=== PATIENT | male | born 1985 | race Caucasian/White ===

== ENCOUNTER 2020-09-29 08:50 | Emergency (ER) | payer SELFPAY ==
[~2020-09-29] VITALS: Ht 180.3 cm; Wt 90.9 kg
[2020-09-29 08:53] VITALS: BP 140/90
[2020-09-29] MEDS: BUPIVACAINE MPF 0.5% 30 ML VIAL. SQ ONE (09:10)
[2020-09-29] MEDS ORDERED: AMOX500T PO (09:12)
--- NOTE | 2020-09-29 09:13 | PHYS DOC ---
Past History Past Medical History: No Pertinent History General Adult EDM: Chief Complaint: DENTAL PROBLEM HPI: HPI: Healthy 35-year-old male who presents for evaluation of dental pain. The patient reports a 1 to 2-day history of left upper incisor pain. No fever or ch ills, nausea or vomiting. Has not yet seen a dentist for his current pain. No recent oral surgery. Review of Systems: Review of Systems: Gen: No fever, chills. ENT: No nasal congestion, sore throat. Reports dental pain. CV: No CP, palpitations. Resp. No SOB, cough. GI: No abd pain, N/V. Neuro: No CHAUDHRY, dizziness, weakness. Skin: No acute rash or lesion. Remainder of systems reviewed and negative unless otherwise specified. Physical Exam: PE: Gen: NAD. Well nourished. Head: NC/AT. Eyes: No scleral icterus. No conjunctival injection. ENT: MMM. Posterior OP clear. Overall poor dentition. No visualized periapical abscess. No facial swelling or cellulitic changes. Neck: Supple. NT. No palpable anterior cervical adenopathy. CV: RRR. Peripheral pulses intact. Resp: CTAB. MSK: No peripheral cyanosis. Neuro: Awake and alert. Skin. Warm. Dry. Psych: Appropriate mood & affect. EKG: EKG: [] Radiology/Procedures: Radiology/Procedures: [] Heart Score: C/O Chest Pain: N/A Risk Factors: Risk Factors: DM, Current or recent (<one month) smoker, HTN, HLP, family history of CAD, obesity. Risk Scores: Score 0 - 3: 2.5% MACE over next 6 weeks - Discharge Home Score 4 - 6: 20.3% MACE over next 6 weeks - Admit for Clinical Observation Score 7 - 10: 72.7% MACE over next 6 weeks - Early Invasive Strategies Course & Med Decision Making: Course & Med Decision Making Pertinent Labs and Imaging studies reviewed. (See chart for details) In summary, 35-year-old male who presents for evaluation of dental pain, primarily of the left upper incisors. No visualized periapical abscess or external facial infection. No clinical suspicion for maxillofacial abscess. I offered a dental block. However, he was only able to tolerate about 0.5 cc of bupivacaine, prior to pulling away. To be discharged home with prescriptions for amoxicillin. Outpatient dental follow-up. Return precautions given. Rodriguez Disclaimer: Rodriguez Disclaimer: This electronic medical record was generated, in whole or in part, using a voice recognition dictation system. Departure Departure: Impression: Primary Impression: Pain, dental Disposition: 01 DC HOME SELF CARE/HOMELESS Condition: STABLE Referrals: PCP,NO (PCP) Patient Instructions: Dental Pain, [id number] Additional Instructions: Please follow up with a dentist for definitive management of your dental pain. Scripts Amoxicillin (AMOXICILLIN) 500 Mg Tablet 1 TAB PO BID for dental pain/caries, #14 TAB Prov: CYN CORTEZ DO 09/29/20 CYN CORTEZ DO Sep 29, 2020 09:13
== END 2020-09-29 09:20 | disposition home or self-care (01) ==
LOC: ER 08:50
DX: K08.89 Other specified disorders of teeth and supporting structures (principal)
CPT/HCPCS: 96372; 99283; J3490

== ENCOUNTER 2020-10-01 12:31 | Emergency (ER) | payer SELFPAY ==
[~2020-10-01] VITALS: Ht 180.3 cm; Wt 90.9 kg
[~2020-10-01 12:31] MED LIST: AMOX500T PO
--- NOTE | 2020-10-01 13:19 | PHYS DOC ---
Past History Past Medical History: No Pertinent History Additional Past Medical Histor: Non Hodgkins Past Surgical History: Other Additional Past Surgical Histo: lymph node removed Alcohol Use: None General Adult EDM: Chief Complaint: DENTAL PROBLEM HPI: HPI: Patient is a 35-year-old male who presents with left-sided facial swelling and facial pain. Patient states that he was seen here in the emergency room 2 days ago and placed on an antibiotic. Patient was unable to get antibiotic filled until yesterday. Patient has been taking antibiotic as directed since yesterday morning. Patient denying pain in his tooth at this time. Patient's concern is swelling in his face that is progressively gotten worse. Patient does have facial pain. Patient's been taking ibuprofen and Tylenol at home for discomfort with little relief. Patient denies any health history. Review of Systems: Review of Systems: Constitutional: Denies fever or chills Eyes: Denies change in visual acuity HENT: Denies nasal congestion or sore throat Respiratory: Denies cough or shortness of breath Cardiovascular: Denies chest pain or edema GI: Denies abdominal pain, nausea, vomiting, bloody stools or diarrhea : Denies dysuria Musculoskeletal: Denies back pain or joint pain Integument: Left-sided facial swelling Neurologic: Denies headache, focal weakness or sensory changes Endocrine: Denies polyuria or polydipsia Lymphatic: Denies swollen glands Psychiatric: Denies depression or anxiety Physical Exam: PE: Constitutional: Well developed, well nourished, no acute distress, non-toxic appearance. [] HENT: Normocephalic, atraumatic, bilateral external ears normal, oropharynx moist, no oral exudates, nose normal. [] Eyes: PERRLA, conjunctiva normal, swelling under left eyelid Neck: Normal range of motion, no tenderness, supple, no stridor. [] Cardiovascular:Heart rate regular rhythm, no murmur [] Lungs & Thorax: Bilateral breath sounds clear to auscultation [] Abdomen: Bowel sounds normal, soft, no tenderness, no masses, no pulsatile masses. [] Skin: Warm, dry, swelling to left side of face Back: No tenderness, no CVA tenderness. [] Extremities: No tenderness, no cyanosis, no clubbing, ROM intact, no edema. [] Neurologic: Alert and oriented X 3, normal motor function, normal sensory fun ction, no focal deficits noted. [] Psychologic: Affect normal, judgement normal, mood normal. [] EKG: EKG: [] Radiology/Procedures: Radiology/Procedures: []CT head without contrast: Reason for examination: Facial swelling. Helical images were obtained through the brain. No contrast was administered. Ventricular systems are symmetric and not dilated. No midline shift is seen. There is no evidence of intracranial hemorrhage, infarct, mass or edema. No abnormalities of seen at the orbits. The paranasal sinuses and mastoid air cells are clear. No acute skull abnormality is seen. IMPRESSION: No acute intracranial abnormality evident. CT maxillofacial without contrast: Helical images were obtained through the maxillofacial structures with intravenous administration of 70 cc Omnipaque 350. Reconstruction was performed in sagittal and coronal planes. The paranasal sinuses show complete opacification of the right maxillary antrum. There is also mild mucosal disease in the left maxillary antrum and a few the ethmoid air cells bilaterally. The gregg of the paranasal sinuses are intact. Nasal bones are intact. No significant nasal septal deviation is seen. Nasal turbinates appear symmetric. No abnormalities are seen at the orbits. The zygomatic arches are intact. Mastoid air cells are clear. No abnormality seen at the mandible or temporomandibular joints. The visualized vertebral bodies of the cervical spine are normally aligned anteriorly and posteriorly. No acute fracture or subluxation is seen. Prevertebral soft tissues are normal. There is no spinal stenosis evident. The pterygoid and masseter muscles show no abnormalities. No abnormalities of seen at the parotid or submandibular glands. There appear to be a several lymph nodes in the neck bilaterally with the largest lymph node on the left measuring 1.5 cm in greatest dimension and the largest lymph node on the right measuring 1.4 cm in greatest dimension. These probably reflect reactive adenopathy. There is soft tissue edema on the left over the mandible and maxilla. No abscess is seen. No abnormality seen at the epiglottis. The vallecula and piriform sinuses are symmetric. Vocal cords are symmetric. Sternocleidomastoid muscles are symmetric. IMPRESSION: Soft tissue edema over the left mandible and maxilla. Several prominent lymph nodes in the neck with the largest lymph node on the left measuring 1.5 cm in greatest dimension and the largest lymph node in the right measuring 1.4 cm in greatest dimension. No abscess evident. Complete opacification of the right maxillary antrum with additional mild muc osal disease in the left maxillary antrum and a few the ethmoid air cells bilaterally. Exposure: One or more of the following individualized dose reduction techniques were utilized for this examination: 1. Automated exposure control 2. Adjustment of the mA and/or kV according to patient size 3. Use of iterative reconstruction technique. Electronically signed by: Char Puri MD (10/01/2020 2:34 PM) [facility] Heart Score: C/O Chest Pain: No Risk Factors: Risk Factors: DM, Current or recent (<one month) smoker, HTN, HLP, family history of CAD, obesity. Risk Scores: Score 0 - 3: 2.5% MACE over next 6 weeks - Discharge Home Score 4 - 6: 20.3% MACE over next 6 weeks - Admit for Clinical Observation Score 7 - 10: 72.7% MACE over next 6 weeks - Early Invasive Strategies Course & Med Decision Making: Course & Med Decision Making Pertinent Labs and Imaging studies reviewed. (See chart for details) [] Patient is currently taking amoxicillin. Patient first dose was yesterday. Patient has been taking as directed. Patient's concern is from left-sided facial swelling and lower eye. Patient is having facial pain but denies dental pain. Patient has an appointment on October 07 to have his tooth extracted. Patient's been taking ibuprofen and Tylenol for pain with no relief. CT head without contrast ordered along with maxillofacial with contrast and orbits. Patient's heart rate is 118. Patient given normal saline bolus, IV clindamycin, morphine for pain. CT head is negative for any acute abnormalities. CT maxillofacial negative for abscess. Patient still reporting he is having pain. Solu-Medrol given for swelling. Toradol ordered. Patient heart rate improved, 99 bpm. All labs unremarkable. Patient will be discharged to home with huan. Patient to use ice packs on face for discomfort, ibuprofen for pain. Patient has a dental appointment on the . Patient needs to continue taking antibiotic at home. Went to discuss discharge with patient and blood pressure was elevated in the 200s. Patient states "I was on blood pressure and the medicine in the past but I quit taking it". Patient is asymptomatic. Patient states that he understands, he will discuss his blood pressure with the doctor at [facility] when he goes for his tooth. Patient is given 10 of labetalol. "I still have a bottle at home blood pressure medicine that I will start taking". Explained to patient he should return to emergency room if he starts having worsening pain, neck pain, fever. Fianc and patient both state that they understand that it is going to take time for swelling and pain to resolve. Dragon Disclaimer: Dragon Disclaimer: This electronic medical record was generated, in whole or in part, using a voice recognition dictation system. Departure Departure: Impression: Primary Impression: Pain, dental Additional Impression: Swelling of left side of face Disposition: 01 DC HOME SELF CARE/HOMELESS Condition: STABLE Referrals: PCP,NO (PCP) Patient Instructions: Dental Pain, [id number] Additional Instructions: You were seen in the emergency room today for facial swelling and dental pain. The CT of your head and face was negative for any acute abnormalities. Please continue taking your antibiotics were prescribed as directed. You can take ibuprofen and Tylenol at home for discomfort. Please return to the emergency room with worsening symptoms or concerns. EMERGENCY DEPARTMENT GENERAL DISCHARGE INSTRUCTIONS Thank you for coming to [facility] (ED) today and trusting us with you care. We trust that you had a positivie experience in our Emergency Department. If you wish to speak to the department management, you may call the director at [phone]. YOUR FOLLOW UP INSTRUCTIONS ARE FOLLOWS: 1. Do you have a private Doctor? If you do not have a private doctor, please ask for a resource list of physicians or clinics that may be able to assist you with follow up care. 2. The Emergency Physician has interpreted your x-rays. The X-Ray specialist will also review them. If there is a change in the findings, you will be notified in 48 hours when at all possible. 3. A lab test or culture has been done, your results will be reviewed and you will be notified if you need a change in treatment. ADDITIONAL INSTRUCTIONS AND INFORMATION: 1. Your care today has been supervised by a physician who is specially trained in emergency care. Many problems require more than one evaluation for a complete diagnosis a nd treatment. We recommend that you schedule your follow up appointment as recommended to ensure complete treatment of you illness or injury. If you are unable to obtain follow up care and continue to have a problem, or if your condition worsens, we recommend that you return to the ED. 2. We are not able to safely determine your condition over the phone nor are we able to give sound medical advice over the phone. For these safety reasons, if you call for medical advice we will ask you to come to the ED for further evaluation. 3. If you have any questions regarding these discharge instructions please call the ED at [phone]. SAFETY INFORMATION: In the interest of safety, wellness, and injury prevention; we encourage you to wear your sealbelt, if you smoke; quite smoking, and we encourage family to use a protective helmet for bicycling and other sporting events that present an increased risk for head injury. IF YOUR SYMPTOMS WORSEN OR NEW SYMPTOMS DEVELOP, OR YOU HAVE CONCERNS ABOUT YOUR CONDITION; OR IF YOUR CONDITION WORSENS WHILE YOU ARE WAITING FOR YOUR FOLLOW UP APPOINTMENT; EITHER CONTACT YOUR PRIMARY CARE DOCTOR, THE PHYSICIAN WHOSE NAME AND NUMBER YOU WERE GIVEN, OR RETURN TO THE ED IMMEDIATELY. DARIO GAN APRN Oct 01, 2020 13:19
[2020-10-01] MEDS ORDERED: HYDROcodone/APAP 5/325MG 1 TAB TABLET PO ONE (13:30)
[2020-10-01] MEDS ORDERED: IOHEXOL 300 MG/ML 75 ML VIAL. IV ONE (13:30)
[2020-10-01] MEDS ORDERED: MORPHINE SULFATE 4 MG/ML DISP.SYRIN. IV ONE (13:45)
[2020-10-01] MEDS ORDERED: CLINDAMYCIN 600MG PREMIX 50 ML IV ONE (13:45)
[2020-10-01] MEDS ORDERED: IV NORMAL SALINE 1,000ML 1,000 ML IV ONE (13:45)
[2020-10-01] MEDS ORDERED: ONDANSETRON PF 4 MG/2 ML VIAL. IVP ONE (13:45)
[2020-10-01 14:19] LABS: CREATININE 1.1 mg/dL (0.7-1.3); GFR 75.7; POTASSIUM 4.3 mmol/L (3.5-5.1)
[2020-10-01 14:20] LABS: BASO % 0 % (0-3); EOS # 0.1 x10^3/uL (0.0-0.7); EOS % 2 % (0-3); HEMOGLOBIN 14.5 g/dL (13.0-17.5); LYMPH # 1.2 x10^3/uL (1.0-4.8); LYMPH % 13 % (24-48); MEAN CORPUSCULAR HEMOGLOBIN 29 pg (25-35); MEAN CORPUSCULAR HGB CONC 33 g/dL (31-37); MEAN CORPUSCULAR VOLUME 86 fL (79-100); MONO # 0.7 x10^3/uL (0.0-1.1); MONO % 8 % (0-9); NEUT # 7.3 x10^3uL (1.8-7.7); NEUT % 78 % (31-73); PLATELET COUNT 180 x10^3/uL (140-400); RED BLOOD COUNT 5.09 x10^6/uL (4.30-5.70); RED CELL DISTRIBUTION WIDTH 14.1 % (11.5-14.5); WHITE BLOOD COUNT 9.3 x10^3/uL (4.0-11.0)
[2020-10-01 14:25] LABS: ALBUMIN 3.5 g/dL (3.4-5.0); ALBUMIN/GLOBULIN RATIO 0.8 (1.0-1.7); TOTAL BILIRUBIN 0.3 mg/dL (0.2-1.0); TOTAL PROTEIN 7.7 g/dL (6.4-8.2)
[2020-10-01] MEDS ORDERED: methylPREDNISolone SOD SUCC PF 125 MG/2 ML VIAL. IV ONE (14:30)
--- NOTE | 2020-10-01 14:37 | RAD ---
CT head without contrast: Reason for examination: Facial swelling. Helical images were obtained through the brain. No contrast was administered. Ventricular systems are symmetric and not dilated. No midline shift is seen. There is no evidence of intracranial hemorrhage, infarct, mass or edema. No abnormalities of seen at the orbits. The paranasa l sinuses and mastoid air cells are clear. No acute skull abnormality is seen. IMPRESSION: No acute intracranial abnormality evident. CT maxillofacial without contrast: Helical images were obtained through the maxillofacial structures with intravenous administration of 70 cc Omnipaque 350. Reconstruction was performed in sagittal and coronal planes. The paranasal sinuses show complete opacification of the right maxillary antrum. There is also mild m ucosal disease in the left maxillary antrum and a few the ethmoid air cells bilaterally. The gregg of the paranasal sinuses are intact. Nasal bones are intact. No significant nasal septal deviation is s een. Nasal turbinates appear symmetric. No abnormalities are seen at the orbits. The zygomatic arches are intact. Mastoid air cells are clear. No abnormality seen at the mandible or temporomandibular juan ints. The visualized vertebral bodies of the cervical spine are normally aligned anteriorly and poste riorly. No acute fracture or subluxation is seen. Prevertebral soft tissues are normal. There is no s jena stenosis evident. The pterygoid and masseter muscles show no abnormalities. No abnormalities of seen at the parotid or submandibular glands. There appear to be a several lymph nodes in the neck bi laterally with the largest lymph node on the left measuring 1.5 cm in greatest dimension and the larg est lymph node on the right measuring 1.4 cm in greatest dimension. These probably reflect reactive a denopathy. There is soft tissue edema on the left over the mandible and maxilla. No abscess is seen. No abnormality seen at the epiglottis. The vallecula and piriform sinuses are symmetric. Vocal cords are symmetric. Sternocleidomastoid muscles are symmetric. IMPRESSION: Soft tissue edema over the left mandible and maxilla. Several prominent lymph nodes in the neck with the largest lymph node on the left measuring 1.5 cm in greatest dimension and the largest lymph node in the right measuring 1.4 cm in greatest dimension. No abscess evident. Complete opacification of the right maxillary antrum with additional mild mucosal disease in the left maxillary antrum and a few the ethmoid air cells bilaterally. Exposure: One or more of the following individualized dose reduction techniques were utilized for thi s examination: 1. Automated exposure control 2. Adjustment of the mA and/or kV according to patient size 3. Use of iterative reconstruction technique. Electronically signed by: Char Puri MD (10/01/2020 2:34 PM) [facility]
[2020-10-01] MEDS ORDERED: KETOROLAC 15 MG/ML VIAL. IVP ONE (15:15)
[2020-10-01] MEDS ORDERED: LABETALOL 20 MG/4 ML DISP.SYRIN. IVP ONE (15:45)
[2020-10-01 16:00] VITALS: BP 174/76
== END 2020-10-01 16:00 | disposition home or self-care (01) ==
LOC: ER 12:31
DX: K08.89 Other specified disorders of teeth and supporting structures (principal); R22.0 Localized swelling, mass and lump, head; R51.9 Headache, unspecified
CPT/HCPCS: 36415; 70450; 70487; 80053; 83605; 85025; 87040; 96365; 96375; 99285; J1885; J2270; J2405; J2930; J3490; J7030; Q9967

== ENCOUNTER 2020-12-11 19:47 | Emergency (ER) | payer SELFPAY ==
[~2020-12-11] VITALS: Ht 182.9 cm; Wt 84.6 kg
[2020-12-11] MEDS ORDERED: ONDANSETRON PF 4 MG/2 ML VIAL. ONE (20:23)
[2020-12-11] MEDS ORDERED: IV NORMAL SALINE 1,000ML 1,000 ML IV ONE (20:30)
[2020-12-11] MEDS ORDERED: ONDANSETRON PF 4 MG/2 ML VIAL. IVP ONE (20:30)
[2020-12-11 20:37] VITALS: BP 143/94
--- NOTE | 2020-12-11 21:31 | PHYS DOC ---
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 Patient states that he has been feeling a little hung over since yesterday when he was at the swimming pool all day long in the heat he decided to walk to a car and sit inside and smoke a cigarette and on his way back he became a little dizzy and fell against a wall striking his face against the wall. Patient denies loss of consciousness. Patient states that he thinks he may have had a heat stroke. Patient states he has not been drinking much water lately. Patient states he does smoke cigarettes, denies alcohol use, states he smokes marijuana occasionally, denies other illicit drug use. Patient denies chest pains, chest palpitations, shortness of breath, fever or chills. Patient denies vomiting or diarrhea, denies abdominal pains, states he is a little nauseated. Patient denies any other physical complaints or physical concerns. (STEVEN BELL APRN) Review of Systems Review of Systems 14 body systems of review of systems have been reviewed. See HPI for pertinent positives and negative responses, otherwise all other systems are negative, nonpertinent or noncontributory. (STEVEN BELL APRN) Current Medications Current Medications Current Medications Medications (Trade) Dose Ordered Sig/Yulia Start Time Stop Time Status Last Admin Dose Admin Ondansetron HCl (Zofran) 4 mg 1X ONCE 12/11/20 20:30 12/11/20 20:31 DC Sodium Chloride 1,000 ml @ 1,000 mls/hr 1X ONCE 12/11/20 20:30 12/11/20 21:29 (STEVEN BELL APRN) Allergies Allergies Allergies Coded Allergies Type Severity Reaction Last Updated Verified No Known Drug Allergies 10/01/20 No (STEVEN BELL APRN) Physical Exam Physical Exam Constitutional: Well developed, well nourished, no acute distress, non-toxic appearance. 35-year-old male in no apparent distress. HENT: Normocephalic, atraumatic, bilateral external ears normal, oropharynx moist, no oral exudates, nose normal. Patient has abrasion to left zygoma. No skull depressions, no contusions appreciated. There is no trismus, no drooling, no malocclusion. Patient speaking in normal voice tones. Bilateral TMs within normal limits, no battles sign, no raccoon eyes. Eyes: PERRLA, EOMI, conjunctiva normal, no discharge. Satisfactory 6 cardinal eye movements. Neck: Normal range of motion, no tenderness, supple, no stridor. No meningismus signs, no nuchal rigidity Cardiovascular:Heart rate regular rhythm, no murmur, heart sounds S1-S2. Lungs & Thorax: Bilateral breath sounds clear to auscultation no adventitious lung sounds appreciated. Abdomen: Bowel sounds normal, soft, no tenderness, no masses, no pulsatile masses. Skin: Warm, dry, no erythema, no rash. Back: No tenderness, no CVA tenderness. Extremities: No tenderness, no cyanosis, no clubbing, ROM intact, no edema. No tetany appreciated. Patient does have bruising and scars consistent with IV track santiago. Neurologic: Alert and oriented X 3, normal motor function, normal sensory function, no focal deficits noted. Psychologic: Affect normal, judgement normal, mood normal. (STEVEN BELL APRN) Current Patient Data Vital Signs Vital Signs Date Time Temp Pulse Resp B/P (MAP) Pulse Ox O2 Delivery O2 Flow Rate FiO2 12/11/20 20:37 98.5 84 16 143/94 (110) 99 Room Air (STEVEN BELL APRN) EKG EKG EKG performed at 2043 by house respiratory therapy staff shows a normal sinus rhythm without ectopy, NH interval 0.1122, QTc interval 0.433, no acute STEMI, no ACS, no acute ischemia appreciated, EKG interpreted by ED attending physician Dr. Canchola. (STEVEN BELL APRN) Radiology/Procedures Radiology/Procedures [] (STEVEN BELL APRN) Heart Score C/O Chest Pain: No Risk Factors: Risk Factors: DM, Current or recent (<one month) smoker, HTN, HLP, family history of CAD, obesity. Risk Scores: Risk Factors: DM, Current or recent (<one month) smoker, HTN, HLP, family history of CAD, obesity. (STEVEN BELL APRN) Course & Med Decision Making Course & Med Decision Making Pertinent Labs and Imaging studies reviewed. (See chart for details) 35-year-old male, vital signs reviewed, presents emergency department chief complaint he was told to come here by the fire department because he was laying down during his break from work with complaints that he feels hung over. Patient's physical examination moderately concerning for dehydration, however patient did have track santiago during physical examination when asked about his track santiago, patient did reveal that he has an IV drug abuser. When asked when patient's last use was, patient states 3 weeks ago. However patient does have fresh/new looking track santiago and arms. Patient did complain of a near syncopal episode yesterday while at a swimming pool, discussed with patient if it was possible he was using at that time and had a near syncopal episode, patient denied this, patient did state that he does have relapses. Discussed with patient will order lab work to rule out heat exhaustion versus heat stroke. Patient is amenable to this plan. Patient difficult IV stick, tried with SonoSite, patient states that these missed IV attempts are making him feel as if he wants to relapse, patient states that he would just rather go home at this time and orally hydrate. Patient states that he would return if he started feeling bad again. Patient states that he is truly feeling much better and really just wants a work excuse for work. Discussed with patient that examination is not complete and he would be leaving AGAINST MEDICAL ADVICE. Discussed with patient risk and benefits of staying for complete emergency examination versus leaving AMA, patient is of my opinion alert and oriented x3, is not altered, is not impaired, is able to make his own educated healthcare decisions. Patient signed AMA form and left emergen cy department with steady gait. (STEVEN BELL APRN) Dragon Disclaimer Dragon Disclaimer This electronic medical record was generated, in whole or in part, using a voice recognition dictation system. (STEVEN BELL APRN) Attending Co-Sign The patient was seen and interviewed as well as examined at the bedside. The chart was reviewed. The case was discussed. Agree with the plan of care. (ABDULLAHI CANCHOLA DO) Departure Departure: Impression: Primary Impression: Left against medical advice Disposition: HOME / SELF CARE / HOMELESS Condition: GOOD Referrals: PCP,NO (PCP) Additional Instructions: You were seen today in the emergency department, you have elected to leave AGAINST MEDICAL ADVICE, please return to the emergency department for worsening symptoms or other concerns. I am providing you with your requested work excuse for tonight. Patient does not wish to proceed with medical care recommended by [facility]. information related to possible complications, up to and including , which could occur as a result of leaving the hospital at this time. Patient verbalizes understanding of risks involved due to leaving against medical advice. Patient has signed AMA form. STEVEN BELL APRN Dec 11, 2020 21:31 ABDULLAHI CANCHOLA DO Dec 12, 2020 02:34
--- NOTE | 2020-12-11 23:58 | EKG ---
[address] [address] Test Date: 2020-12-11 Test Time: 20:44:50 Pat Name: ISMAEL LARKIN Department: Room: Gender: M Plater Helper: : [id number] Requested By: STEVEN BELL Order Number: [id number] Reading MD: Measurements Intervals [place] Rate: 71 P: 1 PA: 122 QRS: 33 QRSD: 96 T: 18 QT: 398 QTc: 433 Interpretive Statements SINUS RHYTHM NORMAL ECG RI6.02 No previous ECG available for comparison
== END 2020-12-11 21:44 | disposition home or self-care (01) ==
LOC: ER 19:47
DX: R42 Dizziness and giddiness (principal); R55 Syncope and collapse
CPT/HCPCS: 93005; 99283-25